=== PATIENT | male | born 1990 | race Caucasian/White ===

== ENCOUNTER 2016-10-11 13:10 | Emergency (ER) | payer SELFPAY ==
--- NOTE | 2016-10-11 13:36 | ED Physician Documentation ---
Low Back Pain - HISTORIAN Historian: patient - [facility] Chief Complaint: Low Back Pain/ Injury History: history of chronic pain: Recent Injury: Yes Severity: moderate Further Comments: yes (Patient injuried lower back about 5 years ago. Has occasional problems since that time. Patient was playing football and was tackled today and reinjuried the lower back. Having some pain go down the left leg. No numbness noted. ANy movement makes the pain worse. Sitting makes it worse.) - ROS CONST: no problems - PAST HX Past History: back injury, back pain Surgeries/Procedures: none Immunizations: referred to PCP Allergies/Adverse Reactions: Allergies Allergy/AdvReac Type Severity Reaction Status Date / Time No Known Allergies Allergy Verified 11/14/15 21:50 Home Medications: Ambulatory Orders Medication Instructions Recorded Tramadol HCl [Ultram] 50 mg PO Q6 PRN #30 tablet 10/11/16 - SOCIAL HX Smoking History: less than 1 pack/day (3 cirgarette) Alcohol Use: none Drug Use: none - FAMILY HX Family History: no significant history - VITAL SIGNS Vital Signs: Vital Signs Temp Pulse Resp BP Pulse Ox 155/96 11/14/15 23:23 - REVIEWED ASSESSMENTS Nursing Assessment Reviewed: Yes Vitals Reviewed: Yes Low Back Pain/Injury - Physical Exam General Appearance: alert, moderate distress Neck: non-tender, painless ROM Resp/CVS: chest non-tender, breath sounds nml, heart sounds nml, no resp. distress, lungs clear, reg. rate & rhythm Abdomen: non-tender Back: CVA tenderness (leeft), other (tenderness to palpation over the left lower perispinal area and buttocks). No: vertebral point-tendernes Straight Leg Raising: Positive Left (60 degrees) Neuro/Psych: oriented x3, reflexes nml, mood/affect nml Skin: warm/dry, normal color Extremities: non-tender Discharge Clincal Impression: Low back pain Qualifiers: Chronicity: acute Back pain laterality: left Sciatica presence: with sciatica Sciatica laterality: sciatica of left side Qualified Code(s): M54.42 - Lumbago with sciatica, left side Referrals: Primary Doctor,No [Primary Care Provider] - 2 Days Additional Instructions: Home and rest. Try a cool/warm compress to the back area. Take 2 tablets of Aleve 220mg twice a day with food and supplement with Tramadol as needed. This may cause drowsiness. If symptoms are not improvong to follow-up with a primary care provider or return to the ED. Home Medications: Ambulatory Orders Tramadol HCl [Ultram] 50 mg PO Q6 PRN #30 tablet 10/11/16 Condition: Stable Disposition: 01 HOME, SELF-CARE Decision to Admit: NO Date of Decison to Admit: 10/11/16 Decision Time: 13:52
[2016-10-11] MEDS ORDERED: KETOROLAC TROMETHAMINE 60 MG/2 ML VIAL IM ONE (13:46)
[2016-10-11 14:10] VITALS: BP 138/80
== END 2016-10-11 14:03 | disposition home or self-care (01) ==
LOC: ED 13:10
DX: M54.42 Lumbago with sciatica, left side (principal)
CPT/HCPCS: 96372; 99283; J1885

== ENCOUNTER 2016-12-10 23:39 | Emergency (ER) | payer SELFPAY ==
[2016-12-10 23:54] VITALS: BP 137/84
--- NOTE | 2016-12-10 23:59 | ED Physician Documentation ---
General Adult - HISTORIAN Historian: patient - HPI Stated Complaint: cough, congestion Chief Complaint: General Adult Timing: still present Further Comments: yes (patient states that he has had a sore throat , fever, headache, cough productive of some green phlegm . Eyes have been matting.) - ROS CONST: fever, chills CVS/RESP: cough - PAST HX Past History: none, other (? sleep apnea) Surgeries/Procedures: none Immunizations: referred to PCP Allergies/Adverse Reactions: Allergies Allergy/AdvReac Type Severity Reaction Status Date / Time No Known Allergies Allergy Verified 12/10/16 23:49 Home Medications: Ambulatory Orders Medication Instructions Recorded Amoxicillin [Trimox] 500 mg PO TID #30 capsule 12/11/16 - SOCIAL HX Smoking History: less than 1 pack/day (4 cigarette/day) - FAMILY HX Family History: No - VITAL SIGNS Vital Signs: Vital Signs Temp Pulse Resp BP Pulse Ox 98.4 F 95 H 16 137/84 96 12/10/16 23:45 12/10/16 23:45 12/10/16 23:45 12/10/16 23:45 12/10/16 23:45 - REVIEWED ASSESSMENTS Nursing Assessment Reviewed: Yes Vitals Reviewed: Yes General Adult Physical Exam - PHYSICAL EXAM GENERAL APPEARANCE: no distress EENT: eye inspection normal, ENT inspection normal, no signs of dehydration, pharyngeal erythema (mild), other (small oral/pharyngeal airway) NECK: normal inspection RESPIRATORY: no resp distress, chest non-tender, breath sounds normal, rhonchi ( few scattered bialt). No: wheezes, rales CVS: reg rate & rhythm, heart sounds normal, equal pulses, no murmur, no gallop , PMI nml ABDOMEN: soft, no organomegaly SKIN: warm/dry, normal color EXTREMITIES: non-tender, no edema NEURO: oriented X3, cognition normal Discharge Clincal Impression: Bronchitis Prescriptions: Amoxicillin [Trimox] 500 mg PO TID #30 capsule Referrals: Primary Doctor,No [Primary Care Provider] - 2 Days Additional Instructions: Drink a lot of fluids, take Amoxil three time a day as directed. STOP SMOKING. If you symptoms are not improving within the next 3-4 days to follow-up with your primary care provider. Condition: Stable Disposition: HOME, SELF-CARE Decision to Admit: NO Date of Decison to Admit: 12/11/16 Decision Time: 00:08
[2016-12-11] MEDS ORDERED: AMOXICILLIN 500 MG CAPSULE PO ONE ×2 (00:04→00:05)
== END 2016-12-11 00:15 | disposition home or self-care (01) ==
LOC: ED 23:39
DX: J40 Bronchitis, not specified as acute or chronic (principal)
CPT/HCPCS: 99283

== ENCOUNTER 2017-02-03 05:12 | Emergency (ER) | payer SELFPAY ==
[2017-02-03 05:30] VITALS: BP 145/88
--- NOTE | 2017-02-03 05:34 | ED Physician Documentation ---
Chest Pain - HISTORIAN Historian: patient - HPI Stated Complaint: Fell a week ago injured Lt chest/fell this AM and same Chief Complaint: Chest Pain Additional Information: Patient states that he fell about one week ago and hit the floor. Had some immediate pain in the left chest wall area. Has been dealing with the pain. Then This SM fell again and hyperextend his left arm and aggravated the pain. No brusing noted. No previous injury noted. Pain is worse with movement and coughing. Has not tried anything to help with the pain. Onset: minutes (35 minutes ago) Timing: sudden onset Last known Well Date: 01/27/17 Last Known Well Time: 08:00 Context: other (fell) Severity: moderate Quality: sharp Chest Pain Radiation: no radiation Chest Pain Signs/Symptoms: denies: nausea, vomiting, diaphoresis Worsened By: deep breaths, movement Relieved By: nothing - ROS CONST: none. denies: fever, chills - PAST HX [place] risk factors: other (anxiety) Surgeries/Procedures: none Allergies/Adverse Reactions: Allergies Allergy/AdvReac Type Severity Reaction Status Date / Time No Known Allergies Allergy Verified 02/03/17 05:29 Home Medications: Ambulatory Orders Medication Instructions Recorded NK [NK] 02/03/17 - SOCIAL HX Smoking History: less than 1 pack/day (3 cigarettes a day) Drug Use: none - FAMILY HX Family HX: none - VITAL SIGNS Vital Signs: Vital Signs Temp Pulse Resp BP Pulse Ox 69 18 145/88 99 02/03/17 05:14 02/03/17 05:14 02/03/17 05:14 02/03/17 05:14 - REVIEWED ASSESSMENTS Nursing Assessment Reviewed: Yes Vitals Reviewed: Yes ED Results Lab/Radiology - Radiology Radiology Impressions: Chest PA view with left rib series History: MID LEFT CHEST PAIN AFTER FALL. Findings: The heart size is normal. The lungs are clear. There is no pleural effusion or pneumothorax identified. The osseous structures are normal. No evidence of rib fracture. Impression: 1. No acute pulmonary disease. 2. No evidence of fracture. Chest Pain Physical Exam - EXAM General Appearance: alert, moderate distress Neck: nml inspection, no carotid bruit Respiratory: no resp. distress, chest non-tender, nml breath sounds, resp.distress, other (tender to palpation over the left anterior chest area, no bony abnl noted, no sub Q crepitus) CVS: reg. rate & rhythm, no murmur, no gallop Abdomen: soft, no organomegaly, normal bowel sounds, no abdominal bruit Skin: warm/dry, normal color, other (no eccymosis noted, pain to the chest wall withabd > 90; external rotation) Extremities: tenderness (over anterior shoulder area. ) Neuro: oriented X3, CN's nml as tested, cognition normal Discharge Clincal Impression: Chest wall contusion Qualifiers: Encounter type: initial encounter Laterality: left Qualified Code(s): S20.212A - Contusion of left front wall of thorax, initial encounter Referrals: Primary Doctor,No [Primary Care Provider] - 2 Days Additional Instructions: Warm compress to the chest wall. Start taking some Aleve 220mg tablets, two tablets twice a day with food as needed for pain. Condition: Stable Disposition: 01 HOME, SELF-CARE Decision to Admit: NO Date of Decison to Admit: 02/03/17 Decision Time: 05:42
[2017-02-03] MEDS ORDERED: NAPROXEN 250 MG TABLET PO ONE (05:59)
--- NOTE | 2017-02-03 06:17 | Diagnostic Imaging Report ---
YESENIA WHEELER [facility] [address] [facility] [address] 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 Physician: YESENIA WHEELER Chest PA view with left rib series History: MID LEFT CHEST PAIN AFTER FALL. Findings: The heart size is normal. The lungs are clear. There is no pleural effusion or pneumothorax identified. The osseous structures are normal. No evidence of rib fracture. Impression: 1. No acute pulmonary disease. 2. No evidence of fracture. 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
== END 2017-02-03 06:30 | disposition home or self-care (01) ==
LOC: ED 05:12
DX: S20.212A Contusion of left front wall of thorax, initial encounter (principal); W19.XXXA Unspecified fall, initial encounter; Y93.9 Activity, unspecified; Y99.9 Unspecified external cause status
CPT/HCPCS: 71101; 99283

== ENCOUNTER 2017-09-14 08:15 | Emergency (ER) | payer SELFPAY ==
[2017-09-14 08:34] VITALS: BP 138/101
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
== END 2017-09-14 09:10 | disposition home or self-care (01) ==
LOC: ED 08:15
DX: S62.306A Unspecified fracture of fifth metacarpal bone, right hand, initial encounter for closed fracture (principal); Y92.9 Unspecified place or not applicable; Y93.9 Activity, unspecified; Y99.9 Unspecified external cause status; Z46.89 Encounter for fitting and adjustment of other specified devices
CPT/HCPCS: 99282

== ENCOUNTER 2018-01-07 10:19 | Emergency (ER) | payer SELFPAY ==
--- NOTE | 2018-01-07 11:41 | ED Physician Documentation ---
Upper Extremity Injury - HISTORIAN Historian: patient - HPI Stated Complaint: Right Hand/Wrist Discomfort Chief Complaint: Upper Extremity Injury Additional Information: right hand in September. Removed cast early, himself. Fell onto same hand this am and felt a pop. Concerned he broke hand again. No other modifying factors or associated events. - ROS CONST: no problems - PAST HX Past History: Rt handed Allergies/Adverse Reactions: Allergies Allergy/AdvReac Type Severity Reaction Status Date / Time No Known Allergies Allergy Verified 01/07/18 10:41 Home Medications: Ambulatory Orders Medication Instructions Recorded NK 01/07/18 - SOCIAL HX Smoking History: non-smoker - FAMILY HX Family History: no significant history - VITAL SIGNS Vital Signs: Vital Signs Temp Pulse Resp BP Pulse Ox 97 F L 78 18 137/96 01/07/18 10:19 01/07/18 10:19 01/07/18 10:19 01/07/18 10:19 - REVIEWED ASSESSMENTS Nursing Assessment Reviewed: Yes Vitals Reviewed: Yes Progress - Progress Progress: Report Submission Date: Jan 07, 2018 11:39:25 AM CDT Patient Study Name: CHACE ALVAREZ Date: Jan 07, 2018 10:57:25 AM CDT Modality Type: DX Gender: M Description: UPPER EXTREMITY : 89 Institution: [facility] Physician: ZACH BO - ER Right hand, 3 views History: Fracture, injury Findings: No prior examinations available for comparison. Healing fractures are noted at the bases of the 4th and 5th metacarpals. Fractures are not significantly displaced. There is no acute fracture, dislocation or abnormal bone destruction. Impression: Healing 4th and 5th metacarpal fractures. Electronically signed on Jan 07, 2018 11:39:25 AM CDT by: Deon Lucas ED Results Lab/Radiology - Orders Orders: ED Orders Category Date Time Status Cock-Up Splint 1T Care 01/07/18 11:46 Active HAND 3 VIEWS OR MORE [RAD] Stat Exams 01/07/18 Completed Upper Extremity Injury Physic - Physical Exam General Appearance: no acute distress, alert Hand: normal ROM, swelling (slight, prox 4th and 5th metacarpals. R radial pulse 2+) Wrist: normal inspection, non-tender, normal ROM Elbow/Forearm: no evidence of injury Shoulder: no evidence of injury Neuro/Vascular/Tendon: no vascular compromise, motor nml, sensation nml Skin: warm,dry Head/ENT: nml inspection Neck/Back: nml inspection Resp/CVS: no resp. distress Abdomen: pelvis stable Discharge Clincal Impression: Contusion of hand Referrals: Primary Doctor,No [Primary Care Provider] - 2 Days Condition: Good Disposition: 01 HOME, SELF-CARE Decision to Admit: NO Decision Time: 11:55
--- NOTE | 2018-01-07 11:45 | Diagnostic Imaging Report ---
ZACH BO [facility] [address] [facility] [address] [address] Report Submission Date: Jan 07, 2018 11:39:25 AM CDT Patient Study Name: CHACE ALVAREZ Date: Jan 07, 2018 10:57:25 AM CDT Modality Type: DX Gender: M Description: UPPER EXTREMITY : 89 Institution: [facility] Physician: ZACH BO Right hand, 3 views History: Fracture, injury Findings: No prior examinations available for comparison. Healing fractures are noted at the bases of the 4th and 5th metacarpals. Fractures are not significantly displaced. There is no acute fracture, dislocation or abnormal bone destruction. Impression: Healing 4th and 5th metacarpal fractures. Electronically signed on Jan 07, 2018 11:39:25 AM CDT by: Deon BEARD
[2018-01-07 11:57] VITALS: BP 130/68
== END 2018-01-07 11:56 | disposition home or self-care (01) ==
LOC: ED 10:19
DX: S60.221A Contusion of right hand, initial encounter (principal); W19.XXXA Unspecified fall, initial encounter; Y92.9 Unspecified place or not applicable; Y93.9 Activity, unspecified; Y99.9 Unspecified external cause status
CPT/HCPCS: 73130; 99282

== ENCOUNTER 2018-05-18 14:59 | Emergency (ER) | payer SELFPAY ==
--- NOTE | 2018-05-18 15:09 | ED Physician Documentation ---
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 Then last night he started to have nausea vomiting and diarrhea. 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 No fever. He is drinking water. Less intake on solid foods. He denies any other complaints) - ROS CONST: no problems - PAST HX Past History: none Other History: none Surgeries/Procedures: none Immunizations: UTD Allergies/Adverse Reactions: Allergies Allergy/AdvReac Type Severity Reaction Status Date / Time No Known Allergies Allergy Verified 05/18/18 15:21 Home Medications: Ambulatory Orders Medication Instructions Recorded NK 01/07/18 - SOCIAL HX Smoking History: non-smoker Alcohol Use: none Drug Use: none - FAMILY HX Family History: No - VITAL SIGNS Vital Signs: Vital Signs Temp Pulse Resp BP Pulse Ox 130/68 01/07/18 11:56 - REVIEWED ASSESSMENTS Nursing Assessment Reviewed: Yes Vitals Reviewed: Yes General Adult Physical Exam - PHYSICAL EXAM GENERAL APPEARANCE: no distress EENT: eye inspection normal, ENT inspection normal, no signs of dehydration NECK: normal inspection RESPIRATORY: no resp distress, chest non-tender, breath sounds normal CVS: reg rate & rhythm, heart sounds normal, no murmur ABDOMEN: soft, normal bowel sounds, no distension, non-tender BACK: normal inspection, no CVA tenderness SKIN: warm/dry, normal color EXTREMITIES: non-tender, normal range of motion, no evidence of injury NEURO: oriented X3 Discharge Clincal Impression: Nausea and vomiting in adult Referrals: Primary Doctor,No [Primary Care Provider] - 2 Days Comments: 1. Zofran 4 mg take 1 by mouth every 8 hours as needed for nausea 2. Clear liquids - advance diet as tolerated to bland 3. OTC meds as needed for symptoms of cough etc as directed 4. See PCP In 2-4 days if no improvement 5. Return to ER for any concerns Condition: Stable Disposition: 01 HOME, SELF-CARE Decision to Admit: NO Date of Decison to Admit: 05/18/18 Decision Time: 15:33
[2018-05-18] MEDS ORDERED: ONDANSETRON HCL 4 MG TAB.RAPDIS PO ONE (15:28)
[2018-05-18 15:45] VITALS: BP 136/93
== END 2018-05-18 15:44 | disposition home or self-care (01) ==
LOC: ED 14:59
DX: R11.2 Nausea with vomiting, unspecified (principal)
CPT/HCPCS: 99283; A9270